=== PATIENT | female | born 1995 | race Caucasian/White ===

== ENCOUNTER 2021-06-03 20:57 | Emergency (ER) | payer OTHER ==
[~2021-06-03] VITALS: Ht 160 cm; Wt 69.0 kg
[2021-06-03 21:19] LABS: HEMATOCRIT 42 % (35-52); HEMOGLOBIN 13.5 g/dL (11.5-16.0); MEAN CORPUSCULAR HEMOGLOBIN 27 pg (25-34); MEAN CORPUSCULAR HGB CONC 32 g/dL (32-36); MEAN CORPUSCULAR VOLUME 86 fL (80-99); MEAN PLATELET VOLUME 10.9 fL (9.0-12.2); PLATELET COUNT 251 10^3/uL (130-400); WHITE BLOOD COUNT 7.3 10^3/uL (4.3-11.0)
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
[2021-06-03 21:24] LABS: ALBUMIN 4.5 GM/DL (3.2-4.5); CHLORIDE 104 MMOL/L (98-107); POTASSIUM 3.9 MMOL/L (3.6-5.0); SODIUM 138 MMOL/L (135-145)
[2021-06-03 21:25] LABS: CALCIUM 9.2 MG/DL (8.5-10.1)
[2021-06-03 21:26] LABS: GLUCOSE 109 MG/DL (70-105); TOTAL PROTEIN 7.8 GM/DL (6.4-8.2)
[2021-06-03 21:27] LABS: CARBON DIOXIDE 20 MMOL/L (21-32)
[2021-06-03 21:28] LABS: BILIRUBIN,TOTAL 0.5 MG/DL (0.1-1.0)
[2021-06-03 21:30] LABS: ALKALINE PHOSPHATASE 55 U/L (40-136); CREATININE SERUM 1.01 MG/DL (0.60-1.30); GFR ESTIMATED 67
[2021-06-03] MEDS ORDERED: IOHEXOL 350 MG/ML 100 ML (OMNIPAQUE 350) VIAL IV ONE (21:30)
[2021-06-03] MEDS ORDERED: NS 100 ML (IVPB) BAG IV ONE (21:30)
[2021-06-03] MEDS ORDERED: CATHETER FLUSH 10 ML SYR IV PRN (21:30)
[2021-06-03] MEDS ORDERED: fentaNYL INJ 100 MCG/2 ML AMP IVP ONE (21:30)
[2021-06-03] MEDS ORDERED: HOLD METFORMIN - RECEIVED CONTRAST 20 ML VIAL IV SCH (21:30)
[2021-06-03 21:31] LABS: BILIRUBIN,DIRECT 0.2 MG/DL (0.0-0.3); BILIRUBIN,INDIRECT 0.3 MG/DL; BUN/CREATININE RATIO 4
[2021-06-03 21:33] LABS: ALANINE AMINOTRANSFERASE 21 U/L (0-55)
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
[2021-06-03] MEDS ORDERED: TETANUS,DIPTH,PERTUSS P/F (BOOSTRIX) 0.5 ML VIAL IM ONE (22:30)
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
[2021-06-03] MEDS ORDERED: LIDOCAINE 1% INJ 20 ML 20 ML VIAL INJ ONE (23:15)
[2021-06-03] MEDS ORDERED: CEPH500T PO (23:17)
[2021-06-03] MEDS ORDERED: RX-CYCLOBENZAPRINE 10 MG (FLEXERIL) TAB PPK#3 PO STA (23:17)
[2021-06-03] MEDS ORDERED: LIDOCAINE 1% INJ 20 ML 20 ML VIAL ONE (23:20)
[2021-06-03] MEDS ORDERED: RX-CYCLOBENZAPRINE 10 MG (FLEXERIL) TAB PPK#3 PO ONE (23:26)
[2021-06-03] MEDS ORDERED: CEPHALEXIN 250 MG (KEFLEX) CAP PO ONE (23:30)
[2021-06-03 23:58] VITALS: BP 104/60
== END 2021-06-03 23:58 | disposition home or self-care (01) ==
LOC: ER 21:04
DX: S91.311A Laceration without foreign body, right foot, initial encounter (principal); Z23 Encounter for immunization; V89.2XXA Person injured in unspecified motor-vehicle accident, traffic, initial encounter
CPT/HCPCS: 70450; 71260; 72125; 73560 ×2; 73590; 73620; 74177; 80048; 80076; 84703; 85027; 93041; 99284; G0480; 36415; 80320; 90715